=== PATIENT | male | born 2000 | race Caucasian/White ===

== ENCOUNTER 2022-05-03 19:05 | Emergency (ER) | payer MEDICAID, OTHER ==
[~2022-05-03] VITALS: Ht 180.3 cm; Wt 122.3 kg
[2022-05-03 20:17] VITALS: BP 143/91
[2022-05-03] MEDS ORDERED: ACETAMINOPHEN 500 MG TAB PO ONE (20:45)
[2022-05-03] MEDS ORDERED: ACET-6 PO (22:52)
== END 2022-05-03 23:18 | disposition home or self-care (01) ==
LOC: ER 19:06
DX: S13.9XXA Sprain of joints and ligaments of unspecified parts of neck, initial encounter (principal); S33.5XXA Sprain of ligaments of lumbar spine, initial encounter; S09.90XA Unspecified injury of head, initial encounter; Z79.899 Other long term (current) drug therapy; V49.9XXA Car occupant (driver) (passenger) injured in unspecified traffic accident, initial encounter; Y93.89 Activity, other specified; Y92.410 Unspecified street and highway as the place of occurrence of the external cause; Y99.8 Other external cause status
CPT/HCPCS: 70450; 71046; 72125; 72131

== ENCOUNTER 2022-06-23 08:48 | Emergency (ER) | payer MEDICAID, OTHER ==
[~2022-06-23] VITALS: Ht 180.3 cm; Wt 115.7 kg
[~2022-06-23 08:48] MED LIST: ACET-6 PO
[2022-06-23 09:45] VITALS: BP 155/81
[2022-06-23] MEDS ORDERED: IBUP800T26 PO (11:55)
[2022-06-23] MEDS ORDERED: LORA-483 GT (11:55)
== END 2022-06-23 12:06 | disposition home or self-care (01) ==
LOC: ER 08:48
DX: J02.8 Acute pharyngitis due to other specified organisms (principal); B97.89 Other viral agents as the cause of diseases classified elsewhere
CPT/HCPCS: 87070; 87077; 87880